=== PATIENT | male | born 1995 | race Caucasian/White ===

== ENCOUNTER 2019-07-21 23:32 | Emergency (ER) | payer MEDICAID, OTHER ==
[~2019-07-21] VITALS: Ht 182.9 cm; Wt 83.9 kg
--- NOTE | 2019-07-21 23:40 | NUR ---
Pt gave verbal and written consent for blood draw while waiting for ED chair. Pt consented to medical screening exam for booking clearance.
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
[2019-07-21 23:42] VITALS: BP_SYST 127
--- NOTE | 2019-07-21 23:52 | NUR ---
Written and verbal consent obtained from patient for blood alcohol, name and verified by patient. Disinfected patient's skin with iodine that did not contain alcohol or other volatile organic compound. Collected the blood from the subject named by venipuncture, in the presence of [facility] Officer. Used a sterile, dry hypodermic needle and dry vacuum blood collection. Two dry vacuum blood collection was supplied by the officer named above. Withdrew a specimen of blood from RAC of the subject named above. Inverted both blood tubes several times to ensure that the preservative and anticoagulant were thoroughly mixed in the blood specimen. I initialed both blood tube labels for identification. The labeled blood tubes were handed directly to the Officer named above. The blood tubes stopper remained in place while I had possession of the blood tubes. The Officer placed tubes into envelope and sealed it in my presence. Envelope initialed by myself and Officer named above. Patient tolerated well, bandage applied, and bleeding controlled.
--- NOTE | 2019-07-21 23:52 | NUR ---
Patient to ER CHAIR to gown for evaluation. Side rails up. Report given to BEATRIZ ARIZMENDI.
--- NOTE | 2019-07-22 00:10 | NUR ---
ER at bedside examining patient.
[2019-07-22 00:30] VITALS: BP_SYST 121
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
== END 2019-07-22 00:30 ==
LOC: SED 23:32
DX: Z02.89 Encounter for other administrative examinations (principal); Z88.0 Allergy status to penicillin; Z88.2 Allergy status to sulfonamides
CPT/HCPCS: 99283